=== PATIENT | male | born 1960 | race Caucasian/White ===

== ENCOUNTER → 2022-09-21 09:54 | Outpatient (BNVA) | payer OTHER, SELFPAY | PROVIDERS: PCP Nurse Practitioner Family; Visit Provider Family Medicine | DX: F33.1 Major depressive disorder, recurrent, moderate (principal); E78.5 Hyperlipidemia, unspecified; Z13.1 Encounter for screening for diabetes mellitus; Z12.5 Encounter for screening for malignant neoplasm of prostate; E78.2 Mixed hyperlipidemia; J30.1 Allergic rhinitis due to pollen; Z72.0 Tobacco use; Z53.20 Procedure and treatment not carried out because of patient's decision for unspecified reasons; Z76.89 Persons encountering health services in other specified circumstances | CPT/HCPCS: 80053; 80061; G0103 ==

== ENCOUNTER → 2023-09-24 10:40 | Outpatient (BNVA) | payer OTHER, SELFPAY | PROVIDERS: PCP Family Medicine; Visit Provider Family Medicine | DX: M19.012 Primary osteoarthritis, left shoulder (principal); E78.5 Hyperlipidemia, unspecified; F33.1 Major depressive disorder, recurrent, moderate; E78.2 Mixed hyperlipidemia; Z13.1 Encounter for screening for diabetes mellitus; Z12.5 Encounter for screening for malignant neoplasm of prostate; J30.1 Allergic rhinitis due to pollen | CPT/HCPCS: 73030; 80053; 80061; G0103 ==

== ENCOUNTER → 2023-11-06 11:07 | Outpatient (BNVA) | payer OTHER, SELFPAY | PROVIDERS: PCP Family Medicine; Referring Provider Family Medicine; Visit Provider Student in an Organized Health Care Education/Training Program | DX: M19.012 Primary osteoarthritis, left shoulder (principal); M75.42 Impingement syndrome of left shoulder | CPT/HCPCS: 73030 ==

== ENCOUNTER 2024-03-18 11:45 | Outpatient (CLI) | payer MEDICARE, OTHER, SELFPAY ==
--- NOTE | 2024-03-18 11:45 | MR_ITS ---
WS: [id number] MRI LEFT SHOULDER NONCONTRAST TECHNIQUE: Sagittal T2, coronal T1, T2 and proton density imaging. Axial gradient PDE imaging. CLINICAL INFORMATION: left shoulder osteoarthritis COMPARISON: None. FINDINGS: Moderate degenerative arthritis AC joint. Mild associated edema. Slight subacromial spurring. Slight impingement distal supraspinatus with mild narrowing of the subacromial space. Tiny insertional tear distal infraspinatus. Supraspinatus and infraspinatus are otherwise intact. No tendon retraction. Nor mal teres minor. Intra-articular biceps tendon appears intact. Subscapularis tendon appears normal. N ormal biceps tendon in the bicipital groove. Biceps labral anchor appears intact. Mild degenerative fraying of the glenoid labrum. Moderate degene rative narrowing glenohumeral articulation. Normal bone marrow signal in the humerus and glenoid. MR/MR shoulder LT wo con* [id number] IMPRESSION: 1. Moderate degenerative arthritis AC joint with mild edema. Slight subacromia l spurring. 2. Tiny insertional tear distal infraspinatus. No tendon retraction. 3. Mild narrowing of the subacromial space with slight impingement on the dist al supraspinatus. 4. Biceps tendon appears intact within the bicipital groove. 5. Normal intra-articular biceps tendon.
== END 2024-03-18 12:00 | disposition home or self-care (01) ==
PROVIDERS: PCP Family Medicine; Visit Provider Physician Assistant
DX: S46.012A Strain of muscle(s) and tendon(s) of the rotator cuff of left shoulder, initial encounter (principal); M19.012 Primary osteoarthritis, left shoulder
CPT/HCPCS: 73221

== ENCOUNTER → 2024-07-25 10:30 | Outpatient (BNVA) | payer MEDICARE, OTHER, SELFPAY | PROVIDERS: PCP Family Medicine; Visit Provider Student in an Organized Health Care Education/Training Program | DX: M75.42 Impingement syndrome of left shoulder (principal) | CPT/HCPCS: 99213 ==

== ENCOUNTER → 2024-10-06 14:24 | Outpatient (BNVA) | payer MEDICARE, OTHER, SELFPAY | PROVIDERS: PCP Family Medicine; Visit Provider Family Medicine | DX: Z12.5 Encounter for screening for malignant neoplasm of prostate (principal); E78.2 Mixed hyperlipidemia; Z13.1 Encounter for screening for diabetes mellitus | CPT/HCPCS: 80053; 80061; 83721; G0103 ==

== ENCOUNTER 2024-10-28 10:10 | Outpatient (CLI) | payer MEDICARE, OTHER, SELFPAY ==
--- NOTE | 2024-10-28 10:00 | CT_ITS ---
WS: [id number] LDCT LUNG CANCER SCREENING HISTORY: F17.210 - Nicotine dependence, cigarettes, uncomplicated TECHNIQUE: Axial imaging performed from the apices to 1 cm below the costophrenic angles. Coronal and sagittal reformats are submitted with axial MIP series. All CT scans at [facility] use at least one of these dose optimization techniques: automated exposure control; mA and/or kV adjustment per patient size (includes targeted exams where dose is matched to clinical indication); or iterative reconstruction. DLP: 112.40 mGy.cm DIvol: Mean CTDIvol: 2.30 (mGy) COMPARISON: None available. Diagnostic quality: Satisfactory. Lungs: Minimal biapical scarring and gliosis. Mild pleural tagging. Scattered areas of a minimal groundglass attenuation throughout both lungs. More prominent LEFT basilar atelectasis. Lingular 7 mm nodule. No endobronchial lesions. Heart: Normal size heart with no pericardial effusion.. Other findings: LEFT adrenal gland mass containing calcification measures 2.5 cm. Benign adenoma. Calcifications may be from prior granulomatous disease or prior hemorrhage. RIGHT adrenal gland is negative. Several thoracic spine Schmorl's nodes. No fracture. CT/CT lung screening [id number] IMPRESSION: LUNG-RADS: 3-Probably Benign FOLLOW UP: 6 Month LDCT OTHER FINDINGS (S MODIFIER): None.
== END 2024-10-28 10:11 | disposition home or self-care (01) ==
LOC: RAD 10:11
PROVIDERS: PCP Family Medicine; Visit Provider Family Medicine
DX: Z12.2 Encounter for screening for malignant neoplasm of respiratory organs (principal); F17.210 Nicotine dependence, cigarettes, uncomplicated; J98.4 Other disorders of lung; J98.11 Atelectasis; R91.1 Solitary pulmonary nodule; E27.8 Other specified disorders of adrenal gland; D35.02 Benign neoplasm of left adrenal gland; M51.44 Schmorl's nodes, thoracic region
CPT/HCPCS: 71271

== ENCOUNTER → 2025-04-03 11:12 | Outpatient (BNVA) | payer MEDICARE, OTHER, SELFPAY | PROVIDERS: PCP Family Medicine; Visit Provider Dermatology | DX: L57.8 Other skin changes due to chronic exposure to nonionizing radiation (principal); L82.1 Other seborrheic keratosis; D18.01 Hemangioma of skin and subcutaneous tissue; L81.4 Other melanin hyperpigmentation; D48.5 Neoplasm of uncertain behavior of skin; L57.0 Actinic keratosis | CPT/HCPCS: 11102; 17000; 99203 ==

== ENCOUNTER 2025-04-14 16:20 | Outpatient (CLI) | payer MEDICARE, OTHER, SELFPAY ==
--- NOTE | 2025-04-14 16:30 | CT_ITS ---
WS: [id number] CT chest wo con [id number] HISTORY: R91.8 - Other nonspecific abnormal finding of lung field TECHNIQUE: Axial imaging performed through the thorax. Coronal and sagittal reformats are submitted. All CT scans at [facility] use at least one of these dose optimization techniques: automated exposure control; mA and/or kV adjustment per patient size (includes targeted exams where dose is matched to clinical indication); or iterative reconstruction. CONTRAST: None DLP: 572.95 mGy.cm COMPARISON: 10/28/2024 Lungs and central airway: Hyperinflated lungs with moderate centrilobular emphysema. Nodule described in the lingula is no longer present. This is probably an area of atelectasis. There is a new 4 mm nodule with surrounding groundglass attenuation in the LEFT lower lobe, image 56 of series 5. There is an additional similar slightly nodular opacification at the LEFT lung base, image 59 of series 5. No additional pulmonary mass or nodule. No endobronchial lesions. Pleura: Normal. No pleural effusion. Heart and pericardium: Normal size heart with no pericardial effusion. Mediastinum and red: No mediastinum or hilar adenopathy. Vessels: Normal size aortic and pulmonary artery. No coronary artery calcifications. Chest wall and lower neck: No soft tissue masses. Upper abdomen: Stable partially calcified LEFT adrenal mass measuring 2.3 cm. Probably representing an adenoma or adrenal mass with prior hemorrhage or granulomatous disease. RIGHT adrenal gland is normal. Incompletely included 2.7 cm low-attenuation mass in the posterior LEFT kidney. Hounsfield units consistent with a cyst. Osseous structures: No destructive bone lesions. CT/CT chest wo con [id number] IMPRESSION: 1. Interval resolution of the lingular nodule since the prior CT of 10/28/2024. 2. New subsolid nodules with groundglass attenuation at the LEFT lung base. Re commend follow-up chest CT in 6 months. 3. Peripherally calcified LEFT adrenal mass is stable at 2.3 cm. 4. Centrilobular emphysema.
== END 2025-04-14 16:21 | disposition home or self-care (01) ==
LOC: RAD 16:20
PROVIDERS: PCP Family Medicine; Visit Provider Family Medicine
DX: R91.8 Other nonspecific abnormal finding of lung field (principal); R91.1 Solitary pulmonary nodule; J43.2 Centrilobular emphysema; E27.8 Other specified disorders of adrenal gland; Z72.0 Tobacco use
CPT/HCPCS: 71250

== ENCOUNTER → 2025-04-15 13:16 | Outpatient (BNVA) | payer MEDICARE, OTHER, SELFPAY | PROVIDERS: PCP Family Medicine; Visit Provider Dermatology | DX: C44.612 Basal cell carcinoma of skin of right upper limb, including shoulder (principal) | CPT/HCPCS: 11602; 12032 ==